=== PATIENT | female | born 1995 | race Caucasian/White ===

== ENCOUNTER 2022-05-23 10:24 | Outpatient (REF) | payer MEDICAID, SELFPAY ==
--- NOTE | 2022-05-23 08:00 | PAPFT_PTH ---
PATIENT: Milind Perez LOC: [facility]#:[id number] AGE/SX: 26/F ROOM: RE05/23/[address]: Lisbet Molina : 1995 BED: DIS: 05/23/2022 SPEC #: [id number] RECD: 05/23/22 18:17 STATUS: JUWAN REQ #: [id number] VIKASH: 05/23/22 08:[address]: Lisbet Hagen DEPT: [facility] Cytology RECD BY: Honey Juan ENTERED: 05/23/22 18:18 SP TYPE: PAPFT OT DR: None Tissues: 1 - CX/ENDOCX FOR PAP SMEARS Procedures: PAP THIN PREP/[facility] Screening Comments: [id number] (CHLAMYDIA/GC)
[2022-05-23 14:22] LABS: Hemoglobin A1C 6.1 % (<5.7)
[2022-05-23 14:32] LABS: Calculated LDL 136 mg/dL (<100); Cholesterol 191 mg/dL (<200); HDL Cholesterol 42 mg/dL (40-60); TSH (W/Ref FT4) 1.18 uIU/mL (0.36-3.74); Triglyceride 69 mg/dL (<150)
[2022-05-24 15:09] LABS: Chlamydia Result Negative (Negative); GC Result Negative (Negative)
== END 2022-05-23 10:25 | disposition home or self-care (01) ==
LOC: NCHCN 10:24
PROVIDERS: Visit Provider Nurse Practitioner Family
DX: F41.8 Other specified anxiety disorders (principal); E66.01 Morbid (severe) obesity due to excess calories; Z13.1 Encounter for screening for diabetes mellitus; Z13.29 Encounter for screening for other suspected endocrine disorder; Z13.220 Encounter for screening for lipoid disorders; Z12.4 Encounter for screening for malignant neoplasm of cervix; Z11.3 Encounter for screening for infections with a predominantly sexual mode of transmission
CPT/HCPCS: 80061; 87491; 87591; 88142; 83036; 84443

== ENCOUNTER 2025-03-16 17:12 | Outpatient (REF) | payer SELFPAY ==
[2025-03-18 13:05] LABS: Bacterial Vaginosis (BV) Positive (Negative); Candida glabrata Negative (Negative); Candida species group Positive (Negative); Chlamydia Result Negative (Negative); GC Result Negative (Negative); Trichomonas vaginalis Negative (Negative)
== END 2025-03-16 17:13 | disposition home or self-care (01) ==
LOC: NCHCN 17:12
PROVIDERS: Visit Provider Family Medicine
DX: Z11.3 Encounter for screening for infections with a predominantly sexual mode of transmission (principal)
CPT/HCPCS: 81513; 87481; 87491; 87591; 87661

== ENCOUNTER 2025-03-28 13:31 | Outpatient (REF) | payer OTHER, SELFPAY ==
--- NOTE | 2025-03-28 08:00 | PAPFT_PTH ---
PATIENT: Milind Perez LOC: [facility] U#:[id number] AGE/SX: 29/F ROOM: RE03/28/[address]: Lisbet Molina : 1995 BED: DIS: 03/28/2025 SPEC #: [id number] RECD: 03/28/25 17:12 STATUS: JUWAN [place] #: [id number] VIKASH: 03/28/25 08:[address]: Lisbet Hagen DEPT: [facility] Cytology RECD BY: Honey Juan Tissues: 1 - CX/ENDOCX FOR PAP SMEARS Procedures: PAP THIN PREP/[facility] Screening Comments: [id number]
[2025-03-28 15:23] LABS: HCT 45.6 % (36.0-46.0); HGB 13.7 g/dL (11.2-15.7); MCH 23.9 pg (27.0-33.0); MCV 79 fL (80-95); MPV 11.4 fL (8.0-11.0); Platelet Count 452 10^3/uL (130-400); RBC 5.74 10^6/uL (3.93-5.22); RDW 15.7 % (11.7-14.6); RDW-SD 44.4 fL; WBC 14.27 10^3/uL (4.4-10.8)
[2025-03-28 15:44] LABS: Anion Gap 6.8 mmol/L (3-11); BUN 9 mg/dL (7-18); CO2 31.2 mmol/L (21.0-32.0); CREATININE 0.9 mg/dL (0.55-1.02); Calcium 9.3 mg/dL (8.5-10.1); Calculated LDL 79 mg/dL (<100); Chloride 103 mmol/L (98-107); Cholesterol 143 mg/dL (<200); Glucose 106 mg/dL (74-106); HDL Cholesterol 52 mg/dL (>or=50); Potassium 4.7 mmol/L (3.5-5.1); Sodium 141 mmol/L (136-145); TSH 1.34 uIU/mL (0.36-3.74); Triglyceride 61 mg/dL (<150)
== END 2025-03-28 13:32 | disposition home or self-care (01) ==
LOC: NCHCN 13:31
PROVIDERS: PCP Nurse Practitioner Family; Visit Provider Nurse Practitioner Family
DX: Z12.4 Encounter for screening for malignant neoplasm of cervix (principal); Z00.00 Encounter for general adult medical examination without abnormal findings; R73.03 Prediabetes; E66.01 Morbid (severe) obesity due to excess calories
CPT/HCPCS: 80048; 80061; 85027; 88142; 83036; 84443

== ENCOUNTER 2025-05-10 11:59 | Outpatient (REF) | payer OTHER, SELFPAY ==
[2025-05-10 15:48] LABS: Abs Immature Grans 0.06 10^3/uL (0.0-0.06); HCT 40.3 % (36.0-46.0); HGB 12.5 g/dL (11.2-15.7); Immature Grans % 0.5 %; MCH 24.7 pg (27.0-33.0); MCHC 31.0 % (32.0-36.0); MCV 80 fL (80-95); MPV 11.4 fL (8.0-11.0); Platelet Count 327 10^3/uL (130-400); RBC 5.07 10^6/uL (3.93-5.22); RDW 15.8 % (11.7-14.6); RDW-SD 45.1 fL; WBC 12.06 10^3/uL (4.4-10.8)
[2025-05-10 16:26] LABS: Iron 34 ug/dL (50-170); Total Iron Binding Capacity 307 ug/dL (250-450); Transferrin Sat 11 % (15-50)
[2025-05-10 16:41] LABS: Ferritin 30 ng/mL (8-252); Folate 12.9 ng/mL (8.6-20.0); Vitamin B12 440 pg/mL (193-986)
== END 2025-05-10 12:00 | disposition home or self-care (01) ==
LOC: NCHCN 11:59
PROVIDERS: PCP Nurse Practitioner Family; Visit Provider Nurse Practitioner Family
DX: D72.829 Elevated white blood cell count, unspecified (principal)
CPT/HCPCS: 82607; 82728; 82746; 83540; 83550; 85025